=== PATIENT | male | born 1975 | race Caucasian/White ===

== ENCOUNTER → 2021-04-15 | Day surgery (SDC) | payer BC, OTHER ==
[~2021-04-15] MED LIST: CITALOPRAM HBR20 MG PO; HYDROCHLOROTH12.5 MG PO; LEVOTHYROXINE100 MC2 PO; LOPID600 MG PO; MELOXICAM7.5 MG PO; OXYCODONE HCL10 MG PO; PRAVASTATIN SOD10 MG PO; PROAIR DIGIHAL90 MCG PO; PROTONIX40 MG PO; ROBAXIN 750 MG750 MG PO; ROPINIROLE HCL1 MG PO; ZESTRIL5 MG PO
== END | disposition home or self-care (01) ==
LOC: OR 08:22
DX: M47.26 Other spondylosis with radiculopathy, lumbar region (principal); M47.16 Other spondylosis with myelopathy, lumbar region; M51.16 Intervertebral disc disorders with radiculopathy, lumbar region; M79.18 Myalgia, other site; F11.20 Opioid dependence, uncomplicated; Z79.899 Other long term (current) drug therapy; M19.90 Unspecified osteoarthritis, unspecified site; Z20.822 Contact with and (suspected) exposure to COVID-19
CPT/HCPCS: 76000; J1040; Q9967